=== PATIENT | female | born 1975 | race Caucasian/White ===

== ENCOUNTER 2020-10-17 11:11 | Emergency (ER) | payer OTHER ==
[~2020-10-17 11:11] MED LIST: ANTIVERT 25MG T25 MG PO; ASPIRIN CHEWABL81 MG PO; BASAGLAR K100 UNIT/1 SQ; CELEXA40 MG PO; COZAAR50 MG PO; CYCLOBENZAPRINE5 MG PO; FENOFIBRATE134 MG PO; FLEXERIL 10 MG10 MG PO; GABAPENTIN300 MG PO; GLUCOPHAGE500 MG PO; IBUPROFEN600 MG PO; LASIX20 MG PO; LOPRESSOR50 MG PO; MOBIC15 MG PO; PERCOCET 5/325 T1 EA PO; PRAVACHOL20 MG PO; PRINIVIL5 MG PO; PROTONIX40 MG PO; SINGULAIR10 MG PO; VENTOLIN HFA 66.7 GM INH
[2020-10-17 12:56] LABS: HEMOGLOBIN 15.5 gm/dl (12.3-15.3); RED BLOOD COUNT 5.5 M/UL (4.00-5.10); WHITE BLOOD COUNT 8.2 K/UL (4.5-11.0)
[2020-10-17 13:17] LABS: BUN/CREATININE RATIO 24 (0-10)
[2020-10-17] MEDS ORDERED: ACID-PEP20 MG PO (16:54)
[2020-11-12] MEDS ORDERED: GABAPENTIN600 MG PO (10:07)
[2020-11-12] MEDS ORDERED: ABILIFY5 MG PO (10:18)
[2020-11-12] MEDS ORDERED: ZOLOFT100 MG PO (10:20)
[2020-11-12] MEDS ORDERED: VOLTAREN EC 7575 MG PO (10:21)
[2020-11-12] MEDS ORDERED: JARDIANCE10 MG PO (10:22)
[2020-11-12] MEDS ORDERED: PHENERGAN 25 MG25 M1 PO (10:23)
[2020-11-12] MEDS ORDERED: GLIPIZIDE5 MG PO (10:24)
[2020-11-12] MEDS ORDERED: ATARAX PO (10:26)
== END 2020-10-17 17:50 | disposition home or self-care (01) ==
LOC: ER1 11:11
PROVIDERS: Student in an Organized Health Care Education/Training Program
DX: K29.70 Gastritis, unspecified, without bleeding (principal); I10 Essential (primary) hypertension; E11.9 Type 2 diabetes mellitus without complications; I25.10 Atherosclerotic heart disease of native coronary artery without angina pectoris; Z90.49 Acquired absence of other specified parts of digestive tract; Z90.710 Acquired absence of both cervix and uterus; Z79.82 Long term (current) use of aspirin; Z88.7 Allergy status to serum and vaccine
CPT/HCPCS: 80053; 83605; 83690; 84702; 85025; 96374; 96375; 99284; J2270; J2405; Q9967

== ENCOUNTER 2020-11-12 10:56 | Emergency (ER) | payer OTHER ==
[~2020-11-12 10:56] MED LIST changes: -COLACE100 MG PO; -HYDROCODON-ACE1 EAC4 PO; -HYDROXYZINE HCL50 MG PO; -TRAZODONE HCL50 MG PO
== END 2020-11-12 12:42 | disposition home or self-care (01) ==
LOC: ER1 10:56
DX: N10 Acute pyelonephritis (principal); E11.9 Type 2 diabetes mellitus without complications; Z90.710 Acquired absence of both cervix and uterus
CPT/HCPCS: 84484; 93005; 99284

== ENCOUNTER → 2020-11-12 | Outpatient (CLI) | payer OTHER ==
[~2020-11-12] MED LIST changes: +ABILIFY5 MG PO; +ACID-PEP20 MG PO; +ATARAX PO; +COLACE100 MG PO; +GABAPENTIN600 MG PO; +GLIPIZIDE5 MG PO; +HYDROCODON-ACE1 EAC4 PO; +HYDROXYZINE HCL50 MG PO; +JARDIANCE10 MG PO; +PHENERGAN 25 MG25 M1 PO; +TRAZODONE HCL50 MG PO; +VOLTAREN EC 7575 MG PO; +ZOLOFT100 MG PO
[2020-11-12 10:17] LABS: HEMOGLOBIN 15.5 gm/dl (12.3-15.3); RED BLOOD COUNT 5.4 M/UL (4.00-5.10); WHITE BLOOD COUNT 7.8 K/UL (4.5-11.0)
[2020-11-12 10:33] LABS: BUN/CREATININE RATIO 29 (0-10)
== END ==
LOC: OPSV2 09:19
PROVIDERS: Anesthesiology
DX: Z01.818 Encounter for other preprocedural examination (principal); K43.2 Incisional hernia without obstruction or gangrene; I10 Essential (primary) hypertension; E11.9 Type 2 diabetes mellitus without complications; D64.9 Anemia, unspecified
CPT/HCPCS: 36415; 80048; 85025; 93005

== ENCOUNTER 2020-11-18 07:14 | Observation (INO) | payer OTHER ==
[~2020-11-18] VITALS: Ht 152.4 cm; Wt 81.6 kg
[2020-11-18] MEDS ORDERED: COLACE100 MG PO (10:50)
[2020-11-18] MEDS ORDERED: HYDROCODON-ACE1 EAC4 PO (10:50)
[2020-11-18 13:57] LABS: HEMOGLOBIN 13.4 gm/dl (12.3-15.3); RED BLOOD COUNT 4.92 M/UL (4.00-5.10); WHITE BLOOD COUNT 16.7 K/UL (4.5-11.0)
[2020-11-18] MEDS ORDERED: TRAZODONE HCL50 MG PO (16:47)
[2020-11-18] MEDS ORDERED: HYDROXYZINE HCL50 MG PO (16:49)
[2020-11-19 06:42] LABS: RED BLOOD COUNT 4.56 M/UL (4.00-5.10)
[2020-11-19 06:50] LABS: WHITE BLOOD COUNT 10.7 K/UL (4.5-11.0)
--- NOTE | 2020-11-19 12:17 | NUR ---
INSTRUCTED PATIENT AND DAUGHTER NO POOLS, OR SHOWERS, FOLLOW MD INSTUCTIONS GIVEN TO PATIENT. NO DRIVING WHILE ON PAIN MEDS. VERBALIZED UNDERSTANDING. CHRIS VELAZQUEZ R.N.
== END 2020-11-19 15:20 | disposition home or self-care (01) ==
LOC: OR 07:14 → MED SURG 4 14:16 → OR 16:20 → MED SURG 4 11-19 15:20
PROVIDERS: ADMIT Surgery
DX: K43.2 Incisional hernia without obstruction or gangrene (principal); I95.9 Hypotension, unspecified; I11.0 Hypertensive heart disease with heart failure; I50.9 Heart failure, unspecified; E78.5 Hyperlipidemia, unspecified; J45.909 Unspecified asthma, uncomplicated; E11.9 Type 2 diabetes mellitus without complications; K21.9 Gastro-esophageal reflux disease without esophagitis; D64.9 Anemia, unspecified; N20.0 Calculus of kidney; Z79.82 Long term (current) use of aspirin; Z79.4 Long term (current) use of insulin
CPT/HCPCS: 36415; 82962; 85027; C1781; G0378; J0690; J1100; J2001; J2250; J2405; J2704; J2710; J2795; J3010; J3480; J7120

== ENCOUNTER 2020-12-21 18:33 | Emergency (ER) | payer OTHER ==
[~2020-12-21 18:33] MED LIST changes: +COLACE100 MG PO; +HYDROCODON-ACE1 EAC4 PO; +HYDROXYZINE HCL50 MG PO; +TRAZODONE HCL50 MG PO
[2020-12-21 21:31] LABS: HEMOGLOBIN 13.9 gm/dl (12.3-15.3); RED BLOOD COUNT 4.79 M/UL (4.00-5.10); WHITE BLOOD COUNT 9.4 K/UL (4.5-11.0)
[2020-12-21 21:53] LABS: BUN/CREATININE RATIO 17 (0-10)
== END 2020-12-22 03:40 | disposition home or self-care (01) ==
LOC: ER1 18:33
PROVIDERS: Physician Assistant Medical
DX: K43.9 Ventral hernia without obstruction or gangrene (principal); E78.5 Hyperlipidemia, unspecified; I25.2 Old myocardial infarction; E11.9 Type 2 diabetes mellitus without complications; I10 Essential (primary) hypertension; Z90.710 Acquired absence of both cervix and uterus
CPT/HCPCS: 80053; 81001; 85025; 99284

== ENCOUNTER 2021-02-19 21:47 | Emergency (ER) | payer OTHER ==
[2021-02-20 00:34] LABS: HEMOGLOBIN 14.8 gm/dl (12.3-15.3); RED BLOOD COUNT 5.17 M/UL (4.00-5.10); WHITE BLOOD COUNT 8.9 K/UL (4.5-11.0)
[2021-02-20 00:53] LABS: BUN/CREATININE RATIO 21 (0-10)
[2021-02-20] MEDS ORDERED: ZOFRAN ODT 4 MG4 MG PO (05:07)
== END 2021-02-20 05:15 | disposition home or self-care (01) ==
LOC: ER1 21:47
PROVIDERS: Family Medicine
DX: R07.89 Other chest pain (principal); E11.65 Type 2 diabetes mellitus with hyperglycemia; I10 Essential (primary) hypertension; E78.5 Hyperlipidemia, unspecified; Z88.7 Allergy status to serum and vaccine; Z20.822 Contact with and (suspected) exposure to COVID-19
CPT/HCPCS: 71045; 80048; 80076; 82550; 82553; 83874; 84484; 85025; 85379; 93005; 96374; 96375; 99285; J1885; J2405; U0002

== ENCOUNTER → 2021-03-02 | Outpatient (CLI) | payer OTHER ==
[~2021-03-02] MED LIST changes: +ZOFRAN ODT 4 MG4 MG PO
== END ==
LOC: KOH-I 08:30
DX: S42.401A Unspecified fracture of lower end of right humerus, initial encounter for closed fracture (principal)
CPT/HCPCS: 73200

== ENCOUNTER 2021-09-29 10:51 | Observation (INO) | payer OTHER ==
[~2021-09-29] VITALS: Ht 149.9 cm; Wt 77.1 kg
[~2021-09-29 10:51] MED LIST changes: -ANTIVERT 25MG T25 MG PO; +MECLIZINE HCL25 MG PO
[2021-09-29 11:10] LABS: RED BLOOD COUNT 4.75 M/UL (4.00-5.10); WHITE BLOOD COUNT 7.4 K/UL (4.5-11.0)
[2021-09-29 11:45] LABS: BUN/CREATININE RATIO 22 (0-10)
[2021-09-29] MEDS ORDERED: IBU600 MG PO (17:34)
[2021-09-30 02:06] LABS: HEMOGLOBIN 13.7 gm/dl (12.3-15.3); RED BLOOD COUNT 4.72 M/UL (4.00-5.10); WHITE BLOOD COUNT 8.1 K/UL (4.5-11.0)
[2021-09-30 02:38] LABS: BUN/CREATININE RATIO 21 (0-10)
[2021-09-30] MEDS ORDERED: ISOSORBIDE MONO30 MG PO (15:20)
== END 2021-09-30 17:45 | disposition home or self-care (01) ==
LOC: ER1 10:51 → CDU 16:38 → M/S 17:42
PROVIDERS: Physician Assistant Medical; ADMIT Internal Medicine
DX: R07.89 Other chest pain (principal); R55 Syncope and collapse; E11.65 Type 2 diabetes mellitus with hyperglycemia; I11.0 Hypertensive heart disease with heart failure; I50.9 Heart failure, unspecified; E78.5 Hyperlipidemia, unspecified; M06.9 Rheumatoid arthritis, unspecified; E78.00 Pure hypercholesterolemia, unspecified; G43.909 Migraine, unspecified, not intractable, without status migrainosus; E66.9 Obesity, unspecified; Z15.01 Genetic susceptibility to malignant neoplasm of breast; Z20.822 Contact with and (suspected) exposure to COVID-19; Z90.49 Acquired absence of other specified parts of digestive tract; Z90.710 Acquired absence of both cervix and uterus; Z79.82 Long term (current) use of aspirin; Z79.899 Other long term (current) drug therapy; Z68.34 Body mass index [BMI] 34.0-34.9, adult; Z82.49 Family history of ischemic heart disease and other diseases of the circulatory system
CPT/HCPCS: ECHO; 0240U; 36415; 70450; 71045; 78452; 80048; 80053; 80061; 82550; 82553; 82962; 83036; 83735; 83880; 84484; 85025; 85027; 93005; 93017; 93306; 96374; 99285; A9502; G0378; J2785

== ENCOUNTER 2022-01-02 16:29 | Emergency (ER) | payer OTHER ==
[~2022-01-02 16:29] MED LIST changes: +IBU600 MG PO; +ISOSORBIDE MONO30 MG PO
[2022-01-02 18:08] LABS: HEMOGLOBIN 14.8 gm/dl (12.3-15.3); RED BLOOD COUNT 5.17 M/UL (4.00-5.10); WHITE BLOOD COUNT 8.3 K/UL (4.5-11.0)
[2022-01-02 18:47] LABS: BUN/CREATININE RATIO 26 (0-10)
== END 2022-01-02 19:34 | disposition other institution (70) ==
LOC: ER1 16:29
PROVIDERS: Nurse Practitioner
DX: M54.9 Dorsalgia, unspecified (principal); R53.1 Weakness; E11.9 Type 2 diabetes mellitus without complications; I11.0 Hypertensive heart disease with heart failure; I50.9 Heart failure, unspecified; Z90.49 Acquired absence of other specified parts of digestive tract; Z51.81 Encounter for therapeutic drug level monitoring; I25.2 Old myocardial infarction; Z88.8 Allergy status to other drugs, medicaments and biological substances
CPT/HCPCS: 70450; 72100; 72128; 72131; 80053; 82550; 82553; 82962; 84484; 85025; 85610; 85730; 93005; 99285; J2997

== ENCOUNTER → 2022-02-03 | Outpatient (CLI) | payer OTHER | LOC: LAB 17:53 | DX: Z20.822 Contact with and (suspected) exposure to COVID-19 (principal) | CPT/HCPCS: U0002 ==